=== PATIENT | male | born 1980 ===

== ENCOUNTER 2016-06-30 09:21 | Emergency (ER) | payer SELFPAY ==
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
--- NOTE | 2016-06-30 13:08 | RAD ---
HISTORY: Pain COMPARISONS: None VIEWS: 5 , Frontal, lateral, coned-down lateral sacral, and bilateral oblique views of the lumbar spine. FINDINGS: ALIGNMENT: The alignment is normal. VERTEBRAL BODIES: The vertebral body heights are normal. The interpedicular distances are normal. JOINTS: There is mild osteoarthritis of the facet joints, most pronounced at L4-L5 and L5-S1 INTERVERTEBRAL DISCS: There is mild diffuse loss of intervertebral disc height. SOFT TISSUE: Unremarkable. OTHER: The pelvis is unremarkable. The lung bases are clear. IMPRESSION: MILD DEGENERATIVE DISC DISEASE AND OSTEOARTHRITIS MOST PRONOUNCED AT L4-L5 AND L5-S1
== END 2016-06-30 13:27 | disposition home or self-care (01) ==
LOC: UCEAST 09:21
DX: M51.37 Other intervertebral disc degeneration, lumbosacral region (principal); M47.817 Spondylosis without myelopathy or radiculopathy, lumbosacral region; Z87.891 Personal history of nicotine dependence
CPT/HCPCS: 72110; 99202; G0463